=== PATIENT | female | born 1960 | race Caucasian/White ===

== ENCOUNTER → 2016-12-16 | Outpatient (CLI) | payer OTHER ==
[~2016-12-16] MED LIST: IOHEXOL 350 MG/ML 100 ML VIAL. PO ONE
--- NOTE | 2016-12-16 15:50 | RAD ---
Indication suspect colovesical fistula. In anticipation of a barium enema a preliminary film of the abdomen was obtained. A considerable amount of stool is seen in the large bowel. The patient was questioned. It was subsequently realized that the patient was not prepped for the barium enema. Examination was rescheduled.
== END | disposition home or self-care (01) ==
LOC: RAD 08:11
PROVIDERS: ATTEND Internal Medicine
DX: R19.7 Diarrhea, unspecified (principal)
CPT/HCPCS: 74270

== ENCOUNTER → 2016-12-21 | Outpatient (CLI) | payer OTHER ==
[~2016-12-21] MED LIST changes: +BARIUM SULFATE 105% 1,900 ML SUSP PO ONE; -IOHEXOL 350 MG/ML 100 ML VIAL. PO ONE
--- NOTE | 2016-12-21 09:03 | RAD ---
Barium enema, 12/21/2016: History: Chronic infections, possible bladder fistula The preliminary abdominal image demonstrates a nonspecific gas pattern. There is no evidence of organomegaly. There are surgical clips at the right groin level Liquid barium was infused into the colon in a retrograde manner. 2.3 minutes of fluoroscopy time was utilized. 12 fluoroscopic spot images were recorded. There are a few small scattered filling defects within the barium column compatible with residual fecal debris. No constricting colonic process is identified. There is no evidence of a colovesical fistula. There is reflux of contrast into the terminal ileum which is unremarkable. IMPRESSION: Negative barium enema
== END | disposition home or self-care (01) ==
LOC: RAD 07:10
PROVIDERS: ATTEND Internal Medicine Gastroenterology
DX: K63.2 Fistula of intestine (principal); K21.9 Gastro-esophageal reflux disease without esophagitis
CPT/HCPCS: 74270

== ENCOUNTER → 2017-07-02 | Outpatient (CLI) | payer OTHER | END | disposition home or self-care (01) | LOC: RAD 12:26 | DX: M25.552 Pain in left hip (principal); M77.8 Other enthesopathies, not elsewhere classified | CPT/HCPCS: 73502 ==